=== PATIENT | male | born 1980 | race Two or more races ===

== ENCOUNTER 2022-11-28 14:45 | Emergency (ER) | payer OTHER ==
[2022-11-28] VITALS (19 sets, daily range): BP systolic 113–138; BP diastolic 53–80
[~2022-11-28] VITALS: Ht 175.3 cm; Wt 111.4 kg
[2022-11-28] MEDS ORDERED: SPIRONOLACTONE25 MG PO (16:03)
[2022-11-28] MEDS ORDERED: ASPIRIN81 MG PO (16:03)
[2022-11-28] MEDS ORDERED: LIPITOR20 M1 PO (16:05)
[2022-11-28 17:09] LABS: BASO% 0.5 % (0-3); EOS% 4.5 % (0-8); HEMATOCRIT 51.5 % (39.0-50.0); HEMOGLOBIN 16.2 g/dl (14.0-18.0); IMMATURE GRANULOCYTES 0.2 % (0.0-5.0); LYMPH% 29.8 % (15-41); MEAN CELL VOLUME 92.1 fL CALC (80.0-100.0); MEAN CORPUSCULAR HGB CONC 31.5 g/dL CAL (32.0-36.0); MONO% 8.4 % (2-13); NEUT# 7.95 thou/uL (1.82-7.42); NEUT% 56.6 % (42-76); RED BLOOD COUNT 5.59 mill/uL (4.70-6.10); RED CELL DISTRI WIDTH 14.6 % (11.5-15.5)
[2022-11-28 17:24] LABS: ALBUMIN 4.6 g/dL (3.2-5.0); ALKALINE PHOSPHATASE 79 u/l (38-126); AMYLASE 60 u/l (30-110); ANION GAP 10 (6-22 (CALC)); BILIRUBIN, TOTAL 0.9 mg/dL (0.2-1.3); BUN 24 mg/dL (9-20); BUN/CREATININE RATIO 31 (12-20 (CALC)); CARBON DIOXIDE 27 mmol/l (22-30); CHLORIDE 108 mmol/l (95-108); CREATININE 0.8 mg/dL (0.7-1.3); GFR FOR AFR.AMER. > 60 ML/MIN (>=60 (CALC)); GFR OTHER RACES > 60 ML/MIN (>=60 (CALC)); LIPASE 110 u/l (23-300); POTASSIUM 3.9 mmol/l (3.5-5.1); SGOT/AST 37 u/l (17-59); SODIUM 141 mmol/l (137-146); TOTAL PROTEIN 7.8 g/dL (6.3-8.2)
[2022-11-28 19:39] LABS: URINE BILIRUBIN - DIPSTICK NEGATIVE (NEGATIVE); URINE BLOOD DIPSTICK NEGATIVE (NEGATIVE); URINE COLOR YELLOW; URINE GLUCOSE - DIPSTICK NEGATIVE (NEGATIVE); URINE KETONE NEGATIVE (NEGATIVE); URINE LEUK ESTERASE NEGATIVE (NEGATIVE); URINE PROTEIN - DIPSTICK NEGATIVE (NEG-TRACE); URINE SPECIFIC GRAVITY 1.025; URINE UROBILINOGEN - DIPSTICK 0.2 E.U./dL (0.2)
[2022-11-28 19:41] LABS: URINE NITRITE - DIPSTICK NEGATIVE (Negative)
[2022-11-28] MEDS ORDERED: ONDANSETRON4 MG PO (19:54)
[2022-11-28] MEDS ORDERED: TRAMADOL HYDROC50 M1 PO (19:54)
[2022-11-28] MEDS ORDERED: PROTONIX40 M2 PO (19:54)
== END 2022-11-28 22:00 | disposition home or self-care (01) | DRG 392 ==
LOC: ED 14:45
PROVIDERS: Nurse Practitioner
DX: R10.12 Left upper quadrant pain (principal); I10 Essential (primary) hypertension; E11.9 Type 2 diabetes mellitus without complications
CPT/HCPCS: Q9967; S0164